=== PATIENT | female | born 1945 | race Caucasian/White ===

== ENCOUNTER 2018-05-15 09:30 | Emergency (ER) | payer OTHER ==
[~2018-05-15] VITALS: Ht 152.4 cm; Wt 68.0 kg
[2018-05-15 09:33] VITALS: BP 136/79
--- NOTE | 2018-05-15 09:37 | NUR ---
ACCU CHECK 146
--- NOTE | 2018-05-15 09:38 | NUR ---
PT AMBULATED TO ER BED 08
--- NOTE | 2018-05-15 09:40 | NUR ---
72/F BIB SELF WITH C/O HEADACHE, LEFT FACIAL AND EAR PAIN FOR 12 DAYS. DENIES N/V/DIZZINESS. HX: HTN, DM. SKIN IS PINK/WARM/DRY; AAOX4 WITH EVEN AND STEADY GAIT; LUNGS CLEAR BL; HR EVEN AND REGULAR; PT DENIES ANY FEVER, CP, SOB, OR COUGH AT THIS TIME; PATIENT STATES PAIN OF 6/10 AT THIS TIME; VSS; PATIENT POSITIONED FOR COMFORT; HOB ELEVATED; BEDRAILS UP X2; BED DOWN. ER MD MADE AWARE OF PT STATUS.
[2018-05-15 11:00] VITALS: BP 131/66
--- NOTE | 2018-05-15 11:00 | NUR ---
Patient discharged with v/s stable. Written and verbal after care instructions given and explained. Patient alert, oriented and verbalized understanding of instructions. Ambulatory with steady gait. All questions addressed prior to discharge. ID band removed. Patient advised to follow up with PMD. Rx of CLINDAMYCIN& MOTRIN given. Patient educated on indication of medication including possible reaction and side effects. Opportunity to ask questions provided and answered.
== END 2018-05-15 11:00 | disposition home or self-care (01) ==
LOC: MED 09:30
DX: K04.7 Periapical abscess without sinus (principal); L98.8 Other specified disorders of the skin and subcutaneous tissue; E11.9 Type 2 diabetes mellitus without complications; I10 Essential (primary) hypertension
CPT/HCPCS: 81002; 99283

== ENCOUNTER 2018-09-21 19:45 | Emergency (ER) | payer OTHER ==
[~2018-09-21] VITALS: Ht 152.4 cm; Wt 68.0 kg
[2018-09-21 19:52] VITALS: BP 143/93
[2018-09-21] MEDS ORDERED: PHENAZOPYRIDINE 100 MG TAB PO ONE (21:25)
[2018-09-21] MEDS ORDERED: LEVOFLOXACIN 500 MG TAB PO ONE (21:25)
[2018-09-21 21:49] VITALS: BP 134/77
== END 2018-09-21 21:45 | disposition home or self-care (01) ==
LOC: MED 19:45
DX: N39.0 Urinary tract infection, site not specified (principal); E11.9 Type 2 diabetes mellitus without complications; I10 Essential (primary) hypertension; M19.90 Unspecified osteoarthritis, unspecified site
CPT/HCPCS: 81002; 87086; 99283